=== PATIENT | male | born 1990 | race Caucasian/White ===

== ENCOUNTER 2016-08-27 12:46 | Emergency (ER) | payer OTHER, MEDICAID ==
[2016-08-27 12:54] VITALS: BP 143/81; PULSE 86; RESP 18; TEMP 97.3; O2SAT 98
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
== END 2016-08-27 13:30 | disposition home or self-care (01) ==
DX: S09.90XA Unspecified injury of head, initial encounter (principal); V46.5XXA Car driver injured in collision with other nonmotor vehicle in traffic accident, initial encounter; Y92.410 Unspecified street and highway as the place of occurrence of the external cause; Y99.8 Other external cause status; Y93.89 Activity, other specified